=== PATIENT | female | born 1950 | race Caucasian/White ===

== ENCOUNTER 2017-05-26 12:24 | Inpatient (IN) | payer MEDICARE, MEDICAID ==
[~2017-05-26] VITALS: Ht 160 cm; Wt 68.5 kg
[~2017-05-26 12:24] MED LIST: ATEN50TA PO; CLON0.1T PO; CLOP75TA2 PO; GABA600T2 PO; LORA1TAB PO; MIRT30TA PO
[2017-05-26] MEDS ORDERED: ATOR10TA PO (12:51)
[2017-05-26] MEDS ORDERED: ZOLPIDEM TARTRATE 5 MG TABLET PO PRN (13:00)
[2017-05-26] MEDS ORDERED: MAGNESIUM HYDROXIDE 30 ML UDC PO PRN (13:00)
[2017-05-26] MEDS ORDERED: DOCU-25 PO (13:12)
[2017-05-26] MEDS ORDERED: CALC-752 PO (13:12)
[2017-05-26] MEDS ORDERED: ASPI325T2 PO (13:12)
[2017-05-26] MEDS ORDERED: ONDA4TAB5 PO (13:12)
[2017-05-26] MEDS ORDERED: QUET50TA PO (13:12)
[2017-05-26] MEDS ORDERED: ONDANSETRON 4 MG TAB.RAPDIS PO PRN (14:00)
[2017-05-26] MEDS ORDERED: CALCIUM CARBONATE 500 MG TAB.CHEW PO PRN (14:00)
[2017-05-26] MEDS: NICOTINE PATCH (14MG) 14 MG PATCH.TD24 TD SCH (14:52)
[2017-05-26] MEDS: GABAPENTIN 300 MG CAPSULE PO SCH ×2 (14:52→17:53)
[2017-05-26] MEDS: LORAZEPAM 0.5 MG TABLET PO PRN ×2 (14:52→22:59)
[2017-05-26 16:00] VITALS: BP 114/80
--- NOTE | 2017-05-26 16:36 | NUR ---
ADMITTED PATIENT FROM [facility], DIRECT ADMIT. HX OF CAD, HYPERTENSION, PSYCHIATRIC ILLNESS. PATIENT IS ON 5150 HOLD FOR DANGER TO SELF. VERBALIZED THAT WANTED TO KILL HERSELF AND THAT WILL OVERDOSE ON ALCOHOL AND PILLS. ON FACE TO FACE ASSESSMENT PATIENT IS A/O X4, APPEARS TO BE A RELIABLE HISTORIAN, ADMITS BEING OVERWHELMED BECAUSE OF THE LIVING SITUATION WITH SISTER, HOWEVER, DENIES SI IDEATION AT THIS TIME, STATING THAT FEELS BETTER AFTER SPENDING A DAY IN THE HOSPITAL. PATIENT IS NOT IN ANY PHYSICAL DISTRESS, VS STABLE. PATIENT IS COOPERATIVE WITH ASSESSMENT, HOWEVER, REFUSED PNEUMOCOCCAL AND FLU VACCINES. PATIENT'S BELONGINGS CHECKED FOR CONTRABAND. DR. RAMIREZ NOTIFIED OF THIS ADMISSION, ORDERS RECEIVED AND CARRIED OUT. DR. STARKEY SEEN THE PATIENT IN THE UNIT. MRSA SWAB DONE AND ORDERED. PATIENT PROVIDED WITH CALM AND SAFE ENVIRONMENT, WILL CONTINUE TO MONITOR THE PATIENT.
--- NOTE | 2017-05-26 19:30 | NUR ---
GPS/SECURITY INTERN; RECEIVED PT IN BED SLEEPING AT THIS TIME OF ROUNDS. BREATHING NON LABORED AND EVEN. NOT IN DISTRESS. BED ON LOWER POSITION AND LOCKED FOR SAFETY. WILL CONTINUE TO MONITOR.
[2017-05-26 20:00] VITALS: BP_SYST 112; BP_SYST 118; BP_DIAS 61; BP_DIAS 78
--- NOTE | 2017-05-26 23:00 | NUR ---
GPS/SYSTEMS DESIGN ENGINEER; PT REQUESTING HER MEDS. NO ROUTINE MEDS. SCHEDULED FOR NIGHT . SO CHARGE NURSE ANABEL TALKED TO THE PT. PT AGREED TO HAVE ATIVAN. SO ATIVAN 1 MG PO Q8 PRN GIVEN AT 2259 ABLE TO SWALLOW WITHOUT PPROBLEM.
--- NOTE | 2017-05-26 23:30 | NUR ---
GPS/DIRECTOR NEWS; PT C/O ABDOMINAL PAIN AND DISCOMFORT. PT OK TO TRY MAALOX. SO MAALOX 30 ML PO Q4 PRN GIVEN. WILL MONITOR.
[2017-05-26] MEDS: MAG HYDROX/AL HYDROX/SIMETH 30 ML UDC PO PRN (23:31)
--- NOTE | 2017-05-27 06:15 | NUR ---
GPS /SKIN CARE THERAPIST; PT CAME TO THE NURSE'S STATION ASKED FOR TOOTH BRUSH, TOOTH PASTE AND A PAIR OF SOCK GIVEN. ALLSO SHE SAID SHE SLEPT GOOD LAST NIGHT. PT ASKED HER BP TO BE CHECKED 123/ 83 AND P 69.
[2017-05-27 06:38] LABS: ALBUMIN 3.8 g/dL (3.4-5.0); BILIRUBIN,TOTAL 0.5 mg/dL (0.2-1.0); CALCIUM, SERUM 9.1 mg/dL (8.5-10.1); CREATININE 0.8 mg/dL (0.6-1.3); POTASSIUM 3.8 mmol/L (3.5-5.1); TOTAL PROTEIN, SERUM 7.2 g/dL (6.4-8.2)
--- NOTE | 2017-05-27 06:50 | NUR ---
GPS/DIRECTOR SOCIAL; PT CAME TO THE NURSE'S STATION SHE ASKED FOR TYLENOL FOR HEADACHE. SO TYLENOL 650 MG PO Q6 PRN GIVEN ORDERED.
[2017-05-27] MEDS: ACETAMINOPHEN 325 MG TABLET PO PRN ×2 (06:52→16:26)
[2017-05-27 07:54] VITALS: BP 129/76
[2017-05-27] MEDS: NICOTINE PATCH (14MG) 14 MG PATCH.TD24 TD SCH (08:23)
[2017-05-27] MEDS: ASPIRIN 325 MG TABLET PO SCH (08:23)
[2017-05-27] MEDS: LORAZEPAM 0.5 MG TABLET PO PRN ×2 (08:23→16:26)
[2017-05-27] MEDS: DOCUSATE SODIUM 100 MG CAPSULE PO SCH (08:23)
[2017-05-27] MEDS: ATORVASTATIN 10 MG TABLET PO SCH (08:24)
[2017-05-27] MEDS: ATENOLOL 50 MG TABLET PO SCH (08:24)
[2017-05-27] MEDS: GABAPENTIN 300 MG CAPSULE PO SCH ×3 (08:24→16:25)
[2017-05-27] MEDS: CLOPIDOGREL BISULFATE 75 MG TABLET PO SCH (08:24)
[2017-05-27] MEDS: MULTIVITAMINS,THERAGRAN 1 UDTAB TABLET PO SCH (09:54)
[2017-05-27 15:35] VITALS: BP 135/85
[2017-05-27 19:48] VITALS: BP 138/81
[2017-05-27] MEDS: MIRTAZAPINE 15 MG TABLET PO SCH (21:34)
[2017-05-28] MEDS: LORAZEPAM 0.5 MG TABLET PO PRN (04:19)
[2017-05-28] MEDS: CLONIDINE HCL 0.1 MG TABLET PO PRN (04:41)
--- NOTE | 2017-05-28 04:42 | NUR ---
GPS RN: PATIENT CAME TO THE NURSES STATION AND STATED "I MIGHT HAVE A HIGH BLOOD PRESSURE RIGHT NOW, I HAVE THE FEELING" SALAD MAKER THEN TOOK HER BP ON BOTH ARMS LEFT ARM READS 191/113MMGHG WITH HR OF 59 O2 SAT @99%. RIGHT ARM READS 189/109MMHG WITH HR OF 59 O2 SAT @ 98%. CLONIDINE 0.1 MG GIVEN ORALLY ORDERED. WILL RECHECK PATIENT'S BP IN 30 MINS. INSTRUCTED PATIENT TO STAY IN BED FOR SAFETY AND FALL PRECAUTIONS. WILL MONITOR.
--- NOTE | 2017-05-28 05:16 | NUR ---
GPS RN: BP RECHECKED 158/89,PATIENT STATED THAT SHE'S FEELING BETTER AT THIS TIME. INSTRUCTED PATIENT TO STAY IN BED OF THE MOMENT.WILL CONTINUE TO MONITOR PATIENT. WILL ENDORSE PATIENT TO DAY SHIFT NURSE.
[2017-05-28 08:03] VITALS: BP 120/75
[2017-05-28] MEDS: NICOTINE PATCH (14MG) 14 MG PATCH.TD24 TD SCH (08:21)
[2017-05-28] MEDS: ASPIRIN 325 MG TABLET PO SCH (08:23)
[2017-05-28] MEDS: CLOPIDOGREL BISULFATE 75 MG TABLET PO SCH (08:23)
[2017-05-28] MEDS: ATENOLOL 50 MG TABLET PO SCH (08:23)
[2017-05-28] MEDS: ATORVASTATIN 10 MG TABLET PO SCH (08:23)
[2017-05-28] MEDS: DOCUSATE SODIUM 100 MG CAPSULE PO SCH (08:23)
[2017-05-28] MEDS: GABAPENTIN 300 MG CAPSULE PO SCH ×3 (08:24→16:34)
[2017-05-28] MEDS: MULTIVITAMINS,THERAGRAN 1 UDTAB TABLET PO SCH (08:24)
[2017-05-28] MEDS ORDERED: LORAZEPAM 0.5 MG TABLET PO PRN (10:00)
[2017-05-28] MEDS: LORAZEPAM 1 MG TABLET PO PRN ×2 (10:41→19:27)
--- NOTE | 2017-05-28 10:42 | NUR ---
GPS RN NOTE: PT IN THE DINNING ROOM ANXIOUS ATIVAN 1 MG PO PRN GIVEN PER ORDER WILL CONTINUE MONITORING FOR SAFETY AND BEHAVIOR Q 15 MIN
[2017-05-28 15:34] VITALS: BP 134/60
[2017-05-28] MEDS: MAG HYDROX/AL HYDROX/SIMETH 30 ML UDC PO PRN (16:34)
[2017-05-28 19:38] VITALS: BP 146/91
[2017-05-28] MEDS: MIRTAZAPINE 15 MG TABLET PO SCH (21:19)
--- NOTE | 2017-05-28 22:20 | NUR ---
GPS RN NOTES: PATIENT ON VOLUNTARY STATUS. SEEN IN THE ROOM WITH ROOMMATE, CALM, COOPERATIVE. NO COMPLAINS OF PAIN OR DISCOMFORT THIS TIME. PATIENT MOVED TO MED SURG/ GPS OVERFLOW WITH ALEJANDRA HEREDIA. BELONGINGS SENT TOGETHER WITH PATIENT. REPORT GIVEN TO CHRISTIAN JIMENEZ FOR CONTINUITY OF CARE.
[2017-05-28 23:00] VITALS: BP 150/93
--- NOTE | 2017-05-28 23:45 | NUR ---
MS RN NOTE DEREK OVERFLOW RECEIVED PATIENT VIA GURNEY FROM [facility]. PATIENT IN STABLE CONDITION WITH ALL BELONGINGS. PATIENT IS COOPERATIVE AT THIS TIME. ORIENTED PATIENT TO ROOM AND TO UNIT. BED LOCKED AND IN LOWEST POSITION. SIDE RAILS UP, CALL LIGHT WITHIN REACH. WILL CONTINUE TO MONITOR.
[2017-05-29] MEDS: LORAZEPAM 1 MG TABLET PO PRN ×4 (02:22→20:41)
--- NOTE | 2017-05-29 06:20 | NUR ---
MS RN NOTE GEROPSYCH OVERFLOW PATIENT STABLE AT THIS TIME. SLEEPING. WILL ENDORSE TO DAY SHIFT FOR SCARLETT.
--- NOTE | 2017-05-29 07:30 | NUR ---
MS/RN Patient received Patient received from quilting machine helper, voluntary status GPS overflow. Calm and cooperative, no needs at this time, will continue to monitor and ensure safety.
--- NOTE | 2017-05-29 07:50 | NUR ---
MACHINING ENGINEER NOTES: PATIENT TRANSFERRED BACK TO GPS DEPT, TO ROOM 219-A. PATIENT BROUGHT TO UNIT BY RAMAN GONZALES, VIA WHEELCHAIR. PATIENT IS AOX4, ON ROOM AIR, BREATHING EVEN AND UNLABORED. APPEARS CALM AND IN NO DISTRESS, DENIES PAIN, ONLY ASKS FOR HER HS MEDS TO BE GIVEN EARLIER, SAYING SHE WANTS TO TAKE THEM PER HER SCHEDULE AT HOME. CONTRABAND/ BELONGINGS CHECKED. VS CHECKED, STABLE. PROVIDED FOR COMFORT AND SAFETY. WILL CONT TO MONITOR. Addendum: 05/29/17 at 2006 by NICOLETTE BROWN RN PLEASE DISREGARD, WRONG TIME OF DOCUMENTATION.
[2017-05-29 08:00] VITALS: BP 166/100
[2017-05-29] MEDS: ATORVASTATIN 10 MG TABLET PO SCH (08:10)
[2017-05-29] MEDS: MULTIVITAMINS,THERAGRAN 1 UDTAB TABLET PO SCH (08:11)
[2017-05-29] MEDS: GABAPENTIN 300 MG CAPSULE PO SCH ×3 (08:11→17:10)
[2017-05-29] MEDS: CLOPIDOGREL BISULFATE 75 MG TABLET PO SCH (08:11)
[2017-05-29] MEDS: ASPIRIN 325 MG TABLET PO SCH (08:11)
[2017-05-29] MEDS: DOCUSATE SODIUM 100 MG CAPSULE PO SCH (08:11)
[2017-05-29] MEDS: ATENOLOL 50 MG TABLET PO SCH (08:12)
[2017-05-29] MEDS: NICOTINE PATCH (14MG) 14 MG PATCH.TD24 TD SCH (08:12)
[2017-05-29 08:41] VITALS: BP 166/100
--- NOTE | 2017-05-29 09:00 | NUR ---
MS/RN Medications Morning medications administered as ordered, no problems swallowing.
--- NOTE | 2017-05-29 12:04 | NUR ---
Initial discharge plan: Patient resides at [address] [place] [address] / [phone], with her sisters. Pt. wishes to go back to her residence with her sisters upon discharge. SW to communicate with patients sister (Nilsa Borges- [phone]) regarding most appropriate discharge plan. SW to help form a safe and proper discharge. Patient to be given substance abuse referrals prior to discharge.
--- NOTE | 2017-05-29 12:34 | NUR ---
flare worker spoke to patient's sister (Nilsa Borges- [phone]/ [phone]) who confirmed that patient lives at home with her and can return upon discharge. flare worker will follow-up.
--- NOTE | 2017-05-29 12:50 | NUR ---
MS/RN Behavior No behavior concerns this morning, remains calm and cooperative with treatment plan. Will continue to monitor.
[2017-05-29] MEDS: CLONIDINE HCL 0.1 MG TABLET PO PRN (14:55)
[2017-05-29 16:00] VITALS: BP 153/98
[2017-05-29 16:04] VITALS: BP 143/78
--- NOTE | 2017-05-29 18:13 | NUR ---
MS/RN End note No changes in plan of care, has remained cooperative with plan of care. No behavior concerns, will continue to monitor and endorse to restaurant shift leader.
--- NOTE | 2017-05-29 19:50 | NUR ---
RN NOTES RECEIVED INSTRUCTIONS TO TRANSFER PATIENT BACK TO GPS. PATIENT ALERT AND ORIENTED X4, VITAL SIGNS STABLE, NO SOB, NO RESPIRATORY DISTRESS, NO COMPLAIN OF PAIN, CALM AND COOPERATIVE. GIVEN REPORT TO RECEIVING RN, BELONGINGS GIVEN BACK TO PATIENT AND TURNED OVER TO GPS.
--- NOTE | 2017-05-29 19:50 | NUR ---
MAGNESIUM MILL OPERATOR NOTES: PATIENT TRANSFERRED BACK TO GPS DEPT, TO ROOM 219-A. PATIENT BROUGHT TO UNIT BY RAMAN GONZALES, VIA WHEELCHAIR. PATIENT IS AOX4, ON ROOM AIR, BREATHING EVEN AND UNLABORED. APPEARS CALM AND IN NO DISTRESS, DENIES PAIN, ONLY ASKS FOR HER HS MEDS TO BE GIVEN EARLIER, SAYING SHE WANTS TO TAKE THEM PER HER SCHEDULE AT HOME. CONTRABAND/ BELONGINGS CHECKED. VS CHECKED, STABLE. PROVIDED FOR COMFORT AND SAFETY. WILL CONT TO MONITOR.
[2017-05-29 20:00] VITALS: BP 147/114
[2017-05-29] MEDS: MIRTAZAPINE 15 MG TABLET PO SCH (21:40)
[2017-05-30] MEDS: LORAZEPAM 1 MG TABLET PO PRN ×3 (04:56→17:25)
[2017-05-30 05:00] VITALS: BP 144/90
--- NOTE | 2017-05-30 05:00 | NUR ---
RN NOTES: PT COMPLAINED OF HAVING ANXIETY, SAYING SHE HAD A BAD DREAM, REQUESTED FOR ATIVAN PRN. ATIVAN 1 MG TAB GIVEN. REASSURED PATIENT. WILL CONT TO MONITOR.
[2017-05-30] MEDS: CLOPIDOGREL BISULFATE 75 MG TABLET PO SCH (08:20)
[2017-05-30] MEDS: NICOTINE PATCH (14MG) 14 MG PATCH.TD24 TD SCH (08:20)
[2017-05-30] MEDS: ASPIRIN 325 MG TABLET PO SCH (08:20)
[2017-05-30] MEDS: ATORVASTATIN 10 MG TABLET PO SCH (08:21)
[2017-05-30] MEDS: MULTIVITAMINS,THERAGRAN 1 UDTAB TABLET PO SCH (08:21)
[2017-05-30] MEDS: DOCUSATE SODIUM 100 MG CAPSULE PO SCH (08:21)
[2017-05-30] MEDS: ATENOLOL 50 MG TABLET PO SCH (08:23)
[2017-05-30] MEDS: GABAPENTIN 300 MG CAPSULE PO SCH ×3 (08:26→17:25)
[2017-05-30 08:49] VITALS: BP 115/58
--- NOTE | 2017-05-30 11:04 | NUR ---
GPS RN NOTE: PT IN THE HALLWAY ANXIOUS ATIVAN 1 MG PO PRN GIVEN PER ORDER WILL CONTINUE MONITORING FOR SAFETY AND BEHAVIOR Q 15 MIN
--- NOTE | 2017-05-30 11:20 | NUR ---
certified social workers in health care spoke to patient's sister (Nilsa Borges- [phone]/ [phone]) who confirmed that she is available to picking tech the patient on Sunday06/01/17 from 10:00am-11:00am.
[2017-05-30] MEDS: CLONIDINE HCL 0.1 MG TABLET PO PRN (15:20)
[2017-05-30 16:00] VITALS: BP 145/92
[2017-05-30 20:18] VITALS: BP 131/79
[2017-05-30] MEDS: MIRTAZAPINE 15 MG TABLET PO SCH (21:15)
[2017-05-31] MEDS: LORAZEPAM 1 MG TABLET PO PRN ×2 (00:34→08:07)
[2017-05-31] MEDS: ASPIRIN 325 MG TABLET PO SCH (08:07)
[2017-05-31] MEDS: ATENOLOL 50 MG TABLET PO SCH (08:08)
[2017-05-31] MEDS: DOCUSATE SODIUM 100 MG CAPSULE PO SCH (08:08)
[2017-05-31] MEDS: MULTIVITAMINS,THERAGRAN 1 UDTAB TABLET PO SCH (08:08)
[2017-05-31] MEDS: CLOPIDOGREL BISULFATE 75 MG TABLET PO SCH (08:08)
[2017-05-31] MEDS: NICOTINE PATCH (14MG) 14 MG PATCH.TD24 TD SCH (08:09)
[2017-05-31] MEDS: ATORVASTATIN 10 MG TABLET PO SCH (08:09)
[2017-05-31] MEDS: GABAPENTIN 300 MG CAPSULE PO SCH ×3 (08:09→16:15)
--- NOTE | 2017-05-31 09:02 | NUR ---
GPS RN NOTE: PT IN THE HALLWAY ANXIOUS ATIVAN 1 MG PO PRN GIVEN PER ORDER WILL CONTINUE MONITORING FOR SAFETY AND BEHAVIOR Q 15 MIN
[2017-05-31 09:09] VITALS: BP 144/90
[2017-05-31] MEDS ORDERED: LORAZEPAM 1 MG TABLET PO PRN (12:00)
[2017-05-31] MEDS: MAG HYDROX/AL HYDROX/SIMETH 30 ML UDC PO PRN (14:55)
[2017-05-31] MEDS: CLONIDINE HCL 0.1 MG TABLET PO PRN (15:51)
[2017-05-31 16:39] VITALS: BP 155/99
[2017-05-31 20:00] VITALS: BP 136/82
[2017-05-31] MEDS: MIRTAZAPINE 15 MG TABLET PO SCH (21:31)
[2017-06-01] MEDS: ACETAMINOPHEN 325 MG TABLET PO PRN (06:58)
--- NOTE | 2017-06-01 06:58 | NUR ---
GPS/RN NOTE: C/O HEADACHE, TYLENOL 650 MG TAB PO GIVEN.
[2017-06-01 08:00] VITALS: BP 160/99
[2017-06-01] MEDS: DOCUSATE SODIUM 100 MG CAPSULE PO SCH (09:09)
[2017-06-01] MEDS: MULTIVITAMINS,THERAGRAN 1 UDTAB TABLET PO SCH (09:09)
[2017-06-01] MEDS: GABAPENTIN 300 MG CAPSULE PO SCH (09:10)
[2017-06-01] MEDS: ATORVASTATIN 10 MG TABLET PO SCH (09:10)
[2017-06-01] MEDS: CLOPIDOGREL BISULFATE 75 MG TABLET PO SCH (09:10)
[2017-06-01] MEDS: ASPIRIN 325 MG TABLET PO SCH (09:10)
[2017-06-01 09:12] VITALS: BP 160/99
[2017-06-01] MEDS: ATENOLOL 50 MG TABLET PO SCH (09:12)
[2017-06-01] MEDS: NICOTINE PATCH (14MG) 14 MG PATCH.TD24 TD SCH (09:13)
--- NOTE | 2017-06-01 11:00 | NUR ---
MACHINE ROPE MAKER NOTES PATIENT DISCHARGE AT THIS TIME GOING HOME. PATIENT A/O X4, MED COMPLIANT, V/S STABLE, MEDICALLY STABLE TO D/C HOME. PATIENT DENIED SI/HI/AVH AT THIS TIME. MED RECONCILIATION, AND DISCHARGE ORDER REVIEWED AND EXPLAINED TO PATIENT. PATIENT VERBALIZED UNDERSTANDING. BELONGING RETURNED BACK TO THE PATIENT. PATIENT ESCORTED TO THE LOBBY FOR SAFETY. PATIENT APARTMENT GROUNDSKEEPER BY SISTER NAME SHEKHAR PHONE # [phone].
--- NOTE | 2017-06-01 14:16 | NUR ---
Discharge Note: Patient was discharged home to [address] [place] [address] ([phone]). Patients sister Nilsa Borges ([phone]/ [phone]) was notified and picked her up via private vehicle. Patient and patient's sister were agreeable with the discharge plan. Patient's mood and affect were calm and appropriate upon discharge. Patient denied suicidal and homicidal ideations. Patient was referred to [email or web address] ([phone]) [address] [place] [address] and agreed to follow-up with a psychiatrist within 30 days. Patient was also referred to [facility] for the alcohol abuse with an intake appointment scheduled for 06/06/17 at 9:00AM, [address] [facility] [address] [place] [address] ([phone]). For smoking cessation patient was referred to the [facility] [address] [facility] [place] [address], with a meeting scheduled for 06/03/17 at 5:30PM, Upstairs, Room 8. Facilitated info to IDT team who are in agreement with discharge arrangement. The multidisciplinary exitcare form was done, printed, signed, and given to the patient.
== END 2017-06-01 11:00 | disposition home or self-care (01) | DRG 881 ==
LOC: GPSOV2 12:24 → GPS 12:24 → UNDOADMIN 12:24 → GPS 15:59 → GPSOV2 05-28 23:05 → GPS 05-29 20:24
PROVIDERS: ADMIT Psychiatry & Neurology Psychiatry; ATTEND Nurse Practitioner Acute Care
DX: F32.9 Major depressive disorder, single episode, unspecified (principal); F10.229 Alcohol dependence with intoxication, unspecified; F03.90 Unspecified dementia, unspecified severity, without behavioral disturbance, psychotic disturbance, mood disturbance, and anxiety; G62.9 Polyneuropathy, unspecified; F23 Brief psychotic disorder; I25.10 Atherosclerotic heart disease of native coronary artery without angina pectoris; E78.5 Hyperlipidemia, unspecified; I10 Essential (primary) hypertension; K21.9 Gastro-esophageal reflux disease without esophagitis; Z73.6 Limitation of activities due to disability; Z98.61 Coronary angioplasty status; F14.10 Cocaine abuse, uncomplicated; Y90.9 Presence of alcohol in blood, level not specified
CPT/HCPCS: 36415; 80053-TC; 80061-TC; 87081-TC